=== PATIENT | male | born 1955 | race Caucasian/White ===

== ENCOUNTER 2016-11-02 21:47 | Emergency (ER) | payer OTHER ==
--- NOTE | 2016-11-02 22:39 | ED ORDER SUMMARY ---
..... Patient: RAFIA BRUSH OrderSheet [facility] VisitID: [id number] [address] [place] [address] 61y, M Registration Date/Time: 11/02/2016 ORDER SHEET Weight: 83.9 kg Allergies: No Known Drug Allergy GENERAL ORDERS: Toe Left Urgent (22:06 11/02/2016 HBivens A.R.N.P.) (Ack 22:09 Robb) (22:24 Demetrice) Bernardo Tape Toes (22:38 11/02/2016 HBivens A.R.N.P.) (22:39 Patricia) MEDICATION ORDERS: IV FLUIDS: ORDER SHEET NOTES: [Electronically signed by Lulú Rockwell (22:54 11/02/2016)] [Electronically signed by Alondra Durand.R.N.PJazmin (23:02 11/02/2016)] [Electronically locked/signed by Lulú Rockwell (22:54 11/02/2016)]
--- NOTE | 2016-11-02 22:39 | ED ORDER SUMMARY ---
..... Patient: RAFIA BRUSH OrderSheet [facility] VisitID: [id number] [address] [place] [address] 61y, M Registration Date/Time: 11/02/2016 ORDER SHEET Weight: 83.9 kg Allergies: No Known Drug Allergy GENERAL ORDERS: Toe Left Urgent (22:06 11/02/2016 HBivens A.R.N.P.) (Ack 22:09 Robb) (22:24 Demetrice) Bernardo Tape Toes (22:38 11/02/2016 HBivens A.R.N.P.) (22:39 Patricia) MEDICATION ORDERS: IV FLUIDS: ORDER SHEET NOTES: [Electronically signed by Lulú Rockwell (22:54 11/02/2016)] [Electronically signed by Alondra Durand.R.N.PJazmin (23:02 11/02/2016)] [Electronically locked/signed by Lulú Rockwell (22:54 11/02/2016)]
--- NOTE | 2016-11-02 22:39 | ED CLINICAL REPORT ---
Clinical Report - Physicians/Mid Levels [facility] [address] [place] [address] 11/02/2016 21:56 Patient: RAFIA BRUSH Time Seen: 21:59; upon arrival, initial patient contact, initial documentation, patient care assumed. Arrived- By private vehicle. Historian- patient. HISTORY OF PRESENT ILLNESS Chief Complaint: Injury to the left 5th (small) toe. The injury happened today. The patient sustained a moderate crush injury (chair ran over toe). Occurred at work. Patient denies injury to the head or neck. No other injury. REVIEW OF SYSTEMS The patient complains of pain on weight bearing. He has had swelling. No tingling, weakness, numbness or skin laceration. All systems otherwise negative, except as recorded above. PAST HISTORY See nurses notes. PROBLEMS: Hypercholesterolemia. Hypertension. Diabetes Mellitus. --22:09 Lluú Rockwell. SOCIAL HISTORY Never smoker. Occasional alcohol use. No drug use. No recent travel. Is a local resident. FAMILY HISTORY No significant family medical history. ADDITIONAL NOTES The nursing notes have been reviewed with agreement regarding the chief complaint, HPI, ROS, PMH and patient medications and allergies. PHYSICAL EXAM Vital Signs: 11/02/2016 22:05 BP: 149/67. HR: 94. RR: 18. O2 saturation: 99%. Temp: 97.5 F. Have been reviewed as normal and appear to be correct. Appearance: Alert. Oriented X3. No acute distress. Head: Head atraumatic. Eyes: Pupils equal, round and reactive to light. Eyes normal inspection. Respiratory: No respiratory distress. Skin: Skin intact. Skin warm and dry. Extremities: Foot injury present. Left fifth toe: mild tenderness and swelling and large ecchymosis. Neurovascular intact distally. No erythema, laceration, abrasion, puncture wound or foreign body. No deformity. No limitation in movement. No localization, subungual hematoma or amputation present. No ankle injury. Foot and ankle exam otherwise negative. Extremities otherwise negative. Neuro, Vascular and Tendons: Vascular status intact. Sensation intact. Motor intact. Tendon function intact. Gait: Abnormal gait. Limping gait. (walking on heal, but also had toe wrapped with zora wrap with ice pack under it). Neuro: Oriented X 3. No motor deficit. No sensory deficit. Note: isolated injury to toe. LABS, X-RAYS, AND EKG X-Rays: Left toe(s). Lt Toes X-ray: Left toe(s) fracture. Fracture involving the distal phalanx of the fifth toe. No open, angulated or displaced fracture of the fifth toe. (IMPRESSION: 1. Nondisplaced fracture of the tuft of the distal phalanx, left fifth toe. 2. Arterial vascular calcifications. Consider diabetes. Electronically Final signed by:Jalen Harris MD 11/02/2016 10:51:05 PM). The X-rays were interpreted by the radiologist and contemporaneously by me. Interpretation time: 22:38. PROGRESS AND PROCEDURES Course of Care: 22:39 11/02/16. L&I paperwork completed. Patient counseled in person regarding the patient's stable condition, test results and diagnosis. 22:38. Differential Diagnosis: Other possible considerations: toe fx vs contusion. Above considerations are based on history, physical exam, reassessment and X-Ray data. Differential diagnosis was discussed with patient. Disposition: Discharged home in good and improved condition (22:38). Condition: good and stable. CLINICAL IMPRESSION Closed nondisplaced distal phalanx fracture of the left 5th toe. No angulated fracture of the phalanx. INSTRUCTIONS Apply ice for 20 minutes four times a day for two days until better. Don't apply ice directly to skin. Bernardo tape toes until released. Elevate affected areas above chest level for two days until better. Warnings: GENERAL WARNINGS: Return or contact your physician immediately if your condition worsens or changes unexpectedly, if not improving as expected, or if other problems arise. Specifically return if problem worsens. Prescription Medications: [place] 5 mg / 325 mg tablets: take 1 to 2 orally every 6 hours as needed for pain. Dispense fifteen (15). No refills. Substitution is permissible. Motrin 800 mg tablets: take 1 tablet orally every 8 hours as needed for pain. Dispense thirty (30). No refills. Substitution is permissible. Understanding of the discharge instructions verbalized by patient. Follow-up with: Everardo Turner DPMercedes, Podiatry, , [address] [facility], [place], [address]; Malcolm Donnelly DPM, Podiatry, , [facility], [address] [place] [address], [address], [place] [address] Follow up in about one week even if well. Call for an appointment. Summary of care provided to patient. (Electronically signed by Alondra Durand A.R.N.P. 11/02/2016 23:02)
--- NOTE | 2016-11-02 22:39 | ED NURSING NOTES ---
Clinical Report - Nurses [facility] [address] [place] [address] 11/02/2016 21:56 Patient: RAIFA BRUSH TRIAGE Triage time 2200. Acuity: LEVEL 4. Chief Complaint: INJURY TO THE LEFT FIFTH TOE (bruising swelling). Alert. No acute distress. --22:10 Lulú Rockwell 22:05 11/02/16. BP: 149/67. HR: 94. RR: 18. O2 saturation: 99%. Temp: 97.5 F. Pain level now 0/10. --22:10 Lulú Rockwell. Weight: 83.9 kg. Height/Length: 69 inches. BMI: 27.3. --22:05 Lulú Rockwell. Medications Flomax Oral. --22:07 Lulú Rockwell Gabapentin Oral. --22:07 Lulú Rockwell Simvastatin Oral. --22:07 Lulú Rockwell Naproxen Oral. --22:07 Lulú Rockwell Metoprolol Tartrate Oral. --22:07 Lulú Rockwell MetFORMIN HCl Oral. --22:08 Lulú Rockwell Hydrochlorothiazide Oral. --22:08 Lulú Rockwell. Medication/allergy information source: the patient. --22:10 Lulú Rockwell. Allergies No Known Drug Allergy. --22:08 Lulú Rockwell. History Arrived by private vehicle. Historian: patient. Accompanied by family. Mechanism of injury: he sustained a crush injury. He has had numbness and trouble walking. 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 SOCIAL HX: Never smoker. Occasional alcohol use. FALL RISK ASSESSMENT: Fall risk assessment completed. No fall risk identified. NUTRITIONAL RISK ASSESSMENT: The nutritional risk assessment revealed no deficiencies. FUNCTIONAL ASSESSMENT: Functional assessment: no impairments noted. LEARNING NEEDS ASSESSMENT: The learning needs assessment revealed no barriers. SKIN INTEGRITY ASSESSMENT: Skin integrity risk assessment completed. No skin integrity risk identified. --22:10 Lulú Rockwell. PROBLEMS: Hypercholesterolemia. Hypertension. Diabetes Mellitus. --22:09 Lulú Rockwell. Interventions ID band on patient. To treatment room. --22:10 Lulú Rockwell. PHYSICAL ASSESSMENT Ambulatory to room. GENERAL / NEURO / PSYCH: Oriented X 4. Alert. Appears in no acute distress. He has had numbness. EXTREMITIES: Capillary refill is less than 2 seconds in the extremities. Extremity pulses are within normal limits. Normal gait. Left fifth toe: tenderness, swelling and ecchymosis. Limited movement secondary to pain. SKIN: Skin intact. Skin is warm and dry. --22:11 Lulú Rockwell. NURSING PROGRESS NOTES The plan of care for this patient has been created. Cold pack applied. Reassurance given. Bed placed in lowest position. Brakes of bed on. Patient ready for evaluation- chart flagged. --22:11 Lulú Rockwell Left fourth and fifth toes flaca-taped. --22:53 Lulú Rockwell. DISPOSITION / DISCHARGE Departure time: 2250. Condition at departure: unchanged and stable. No learning barriers present. Discharge instructions provided and reviewed with the patient. Reviewed medication(s). Treatments reviewed. Patient verbalized understanding. Written instructions provided in [place]. The patient was discharged by the nurse practitioner. He was discharged home and accompanied by family. He left the Emergency Department ambulatory and via private vehicle. Family member driving. --22:54 Lulú Rockwell. Locked/Released at 11/02/2016 22:54 by Lulú Rockwell,
--- NOTE | 2016-11-02 22:39 | ED NURSING NOTES ---
Clinical Report - Nurses [facility] [address] [place] [address] 11/02/2016 21:56 Patient: RAFIA BRUSH TRIAGE Triage time 2200. Acuity: LEVEL 4. Chief Complaint: INJURY TO THE LEFT FIFTH TOE (bruising swelling). Alert. No acute distress. --22:10 Lulú Rockwell 22:05 11/02/16. BP: 149/67. HR: 94. RR: 18. O2 saturation: 99%. Temp: 97.5 F. Pain level now 0/10. --22:10 Lulú Rockwell. Weight: 83.9 kg. Height/Length: 69 inches. BMI: 27.3. --22:05 Lulú Rockwell. Medications Flomax Oral. --22:07 Lulú Rockwell Gabapentin Oral. --22:07 Lulú Rockwell Simvastatin Oral. --22:07 Lulú Rockwell Naproxen Oral. --22:07 Lulú Rockwell Metoprolol Tartrate Oral. --22:07 Lulú Rockwell MetFORMIN HCl Oral. --22:08 Lulú Rockwell Hydrochlorothiazide Oral. --22:08 Lulú Rockwell. Medication/allergy information source: the patient. --22:10 Lluú Rockwell. Allergies No Known Drug Allergy. --22:08 Lulú Rockwell. History Arrived by private vehicle. Historian: patient. Accompanied by family. Mechanism of injury: he sustained a crush injury. He has had numbness and trouble walking. 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 SOCIAL HX: Never smoker. Occasional alcohol use. FALL RISK ASSESSMENT: Fall risk assessment completed. No fall risk identified. NUTRITIONAL RISK ASSESSMENT: The nutritional risk assessment revealed no deficiencies. FUNCTIONAL ASSESSMENT: Functional assessment: no impairments noted. LEARNING NEEDS ASSESSMENT: The learning needs assessment revealed no barriers. SKIN INTEGRITY ASSESSMENT: Skin integrity risk assessment completed. No skin integrity risk identified. --22:10 Lulú Rockwell. PROBLEMS: Hypercholesterolemia. Hypertension. Diabetes Mellitus. --22:09 Lulú Rockwell. Interventions ID band on patient. To treatment room. --22:10 Lulú Rockwell. PHYSICAL ASSESSMENT Ambulatory to room. GENERAL / NEURO / PSYCH: Oriented X 4. Alert. Appears in no acute distress. He has had numbness. EXTREMITIES: Capillary refill is less than 2 seconds in the extremities. Extremity pulses are within normal limits. Normal gait. Left fifth toe: tenderness, swelling and ecchymosis. Limited movement secondary to pain. SKIN: Skin intact. Skin is warm and dry. --22:11 Lulú Rockwell. NURSING PROGRESS NOTES The plan of care for this patient has been created. Cold pack applied. Reassurance given. Bed placed in lowest position. Brakes of bed on. Patient ready for evaluation- chart flagged. --22:11 Lulú Rockwell Left fourth and fifth toes flaca-taped. --22:53 Lulú Rockwell. DISPOSITION / DISCHARGE Departure time: 2250. Condition at departure: unchanged and stable. No learning barriers present. Discharge instructions provided and reviewed with the patient. Reviewed medication(s). Treatments reviewed. Patient verbalized understanding. Written instructions provided in [place]. The patient was discharged by the nurse practitioner. He was discharged home and accompanied by family. He left the Emergency Department ambulatory and via private vehicle. Family member driving. --22:54 Lulú Rockwell. Locked/Released at 11/02/2016 22:54 by Lulú Rockwell,
--- NOTE | 2016-11-02 22:39 | ED CLINICAL REPORT ---
Clinical Report - Physicians/Mid Levels [facility] [address] [place] [address] 11/02/2016 21:56 Patient: RAFIA BRUSH Time Seen: 21:59; upon arrival, initial patient contact, initial documentation, patient care assumed. Arrived- By private vehicle. Historian- patient. HISTORY OF PRESENT ILLNESS Chief Complaint: Injury to the left 5th (small) toe. The injury happened today. The patient sustained a moderate crush injury (chair ran over toe). Occurred at work. Patient denies injury to the head or neck. No other injury. REVIEW OF SYSTEMS The patient complains of pain on weight bearing. He has had swelling. No tingling, weakness, numbness or skin laceration. All systems otherwise negative, except as recorded above. PAST HISTORY See nurses notes. PROBLEMS: Hypercholesterolemia. Hypertension. Diabetes Mellitus. --22:09 Lulú Rockwell. SOCIAL HISTORY Never smoker. Occasional alcohol use. No drug use. No recent travel. Is a local resident. FAMILY HISTORY No significant family medical history. ADDITIONAL NOTES The nursing notes have been reviewed with agreement regarding the chief complaint, HPI, ROS, PMH and patient medications and allergies. PHYSICAL EXAM Vital Signs: 11/02/2016 22:05 BP: 149/67. HR: 94. RR: 18. O2 saturation: 99%. Temp: 97.5 F. Have been reviewed as normal and appear to be correct. Appearance: Alert. Oriented X3. No acute distress. Head: Head atraumatic. Eyes: Pupils equal, round and reactive to light. Eyes normal inspection. Respiratory: No respiratory distress. Skin: Skin intact. Skin warm and dry. Extremities: Foot injury present. Left fifth toe: mild tenderness and swelling and large ecchymosis. Neurovascular intact distally. No erythema, laceration, abrasion, puncture wound or foreign body. No deformity. No limitation in movement. No localization, subungual hematoma or amputation present. No ankle injury. Foot and ankle exam otherwise negative. Extremities otherwise negative. Neuro, Vascular and Tendons: Vascular status intact. Sensation intact. Motor intact. Tendon function intact. Gait: Abnormal gait. Limping gait. (walking on heal, but also had toe wrapped with zora wrap with ice pack under it). Neuro: Oriented X 3. No motor deficit. No sensory deficit. Note: isolated injury to toe. LABS, X-RAYS, AND EKG X-Rays: Left toe(s). Lt Toes X-ray: Left toe(s) fracture. Fracture involving the distal phalanx of the fifth toe. No open, angulated or displaced fracture of the fifth toe. (IMPRESSION: 1. Nondisplaced fracture of the tuft of the distal phalanx, left fifth toe. 2. Arterial vascular calcifications. Consider diabetes. Electronically Final signed by:Jalen Harris MD 11/02/2016 10:51:05 PM). The X-rays were interpreted by the radiologist and contemporaneously by me. Interpretation time: 22:38. PROGRESS AND PROCEDURES Course of Care: 22:39 11/02/16. L&I paperwork completed. Patient counseled in person regarding the patient's stable condition, test results and diagnosis. 22:38. Differential Diagnosis: Other possible considerations: toe fx vs contusion. Above considerations are based on history, physical exam, reassessment and X-Ray data. Differential diagnosis was discussed with patient. Disposition: Discharged home in good and improved condition (22:38). Condition: good and stable. CLINICAL IMPRESSION Closed nondisplaced distal phalanx fracture of the left 5th toe. No angulated fracture of the phalanx. INSTRUCTIONS Apply ice for 20 minutes four times a day for two days until better. Don't apply ice directly to skin. Bernardo tape toes until released. Elevate affected areas above chest level for two days until better. Warnings: GENERAL WARNINGS: Return or contact your physician immediately if your condition worsens or changes unexpectedly, if not improving as expected, or if other problems arise. Specifically return if problem worsens. Prescription Medications: [place] 5 mg / 325 mg tablets: take 1 to 2 orally every 6 hours as needed for pain. Dispense fifteen (15). No refills. Substitution is permissible. Motrin 800 mg tablets: take 1 tablet orally every 8 hours as needed for pain. Dispense thirty (30). No refills. Substitution is permissible. Understanding of the discharge instructions verbalized by patient. Follow-up with: Everardo Turner DPMercedes, Podiatry, , [address] [facility], [place], [address]; Malcolm Donnelly DPM, Podiatry, , [facility], [address] [place] [address], [address], [place] [address] Follow up in about one week even if well. Call for an appointment. Summary of care provided to patient. (Electronically signed by Alondra Durand A.R.N.P. 11/02/2016 23:02)
--- NOTE | 2016-11-02 22:55 | DIAGNOSTIC IMAGING REPORT ---
PROCEDURE: XR TOE - LEFT (fifth toe). INDICATION: TRAUMA/INJURY TECHNIQUE: Three views. COMPARISON: None. FINDINGS: There is a nondisplaced transverse fracture of the tuft of the distal phalanx, left fifth toe. The rest the osseous structures and joint spaces are normal. Arterial vascular calcifications. IMPRESSION: 1. Nondisplaced fracture of the tuft of the distal phalanx, left fifth toe. 2. Arterial vascular calcifications. Consider diabetes.
--- NOTE | 2016-11-02 23:02 | ED MED RECONCILIATION SUMMARY ---
Patient: RAFIA BRUSH Medication Reconciliation Report [facility] VisitID: [id number] [address] [place] [address] 61y, M Registration Date/Time: 11/02/2016 Weight: 83.9 kg Height/Length: 69 in. BMI: 27.3 ALLERGIES: No Known Drug Allergy The patient's Home Medications are listed below: THE FOLLOWING MEDICATIONS NEED TO BE RECONCILED: Flomax Oral Gabapentin Oral Hydrochlorothiazide Oral MetFORMIN HCl Oral Metoprolol Tartrate Oral Naproxen Oral Simvastatin Oral The source(s) of the original Home Medication information: patient The following Medications were given to the patient in the Emergency Department: None. The following Medications were prescribed to the patient: [place] 5 mg / 325 mg tablets: take 1 to 2 orally every 6 hours as needed for pain. Dispense fifteen (15). No refills. Substitution is permissible. -- Alondra Durand, Jose A.R.N.P. Motrin 800 mg tablets: take 1 tablet orally every 8 hours as needed for pain. Dispense thirty (30). No refills. Substitution is permissible. -- Alondra Durand A.R.N.P.
--- NOTE | 2016-11-02 23:02 | ED DISCHARGE INSTRUCTIONS ---
Patient: RAFIA BRUSH General Instructions [facility] VisitID: [id number] [place] [address] 61y, M Registration Date/Time: 11/02/2016 Closed nondisplaced distal phalanx fracture of the left 5th toe. No angulated fracture of the phalanx. INSTRUCTIONS Apply ice for 20 minutes four times a day for two days until better. Don't apply ice directly to skin. Flaca tape toes until released. Elevate affected areas above chest level for two days until better. Warnings: GENERAL WARNINGS: Return or contact your physician immediately if your condition worsens or changes unexpectedly, if not improving as expected, or if other problems arise. Specifically return if problem worsens. Prescription Medications: Plato 5 mg / 325 mg tablets: take 1 to 2 orally every 6 hours as needed for pain. Dispense fifteen (15). No refills. Substitution is permissible. Motrin 800 mg tablets: take 1 tablet orally every 8 hours as needed for pain. Dispense thirty (30). No refills. Substitution is permissible. Understanding of the discharge instructions verbalized by patient. Follow-up with: Everardo Turner DPM, Podiatry, , [address] [place] [address]. [address], [place] [address]; Malcolm Donnelly DPM, Podiatry, , [facility], [address] [place] [address], [address], [place] [address] Follow up in about one week even if well. Call for an appointment. Summary of care provided to patient. ADDITIONAL INFORMATION Fracture:Toe [Closed] You have a fracture of your toe (broken toe). This causes local pain, swelling and bruising. This injury takes about four weeks to heal. Toe injuries are often treated by taping the injured toe to the next one ("flaca taping"). This protects the injured toe and holds it in position. If the TOENAIL has been severely injured, it may fall off in 1-2 weeks. It takes up to 12 months for a new toenail to grow back. Home Care: 1) You may be given a cast shoe to wear to prevent movement in your toe. If not, you can use a sandal or any shoe that does not put pressure on the injured toe until the swelling and pain go away. If using a sandal, be careful not to strike your foot against anything, since another injury could make the fracture worse. If you were given crutches, do not put full weight on the injured foot until you can do so without pain. 2) Keep your foot elevated to reduce pain and swelling. When sleeping, place a pillow under the injured leg. When sitting, support the injured leg so it is level with your waist. This is very important during the first 48 hours. 3) Apply an ice pack (ice cubes in a plastic bag, wrapped in a towel) over the injured area for 20 minutes every 1-2 hours the first day. Continue with ice packs 3-4 times a day for the next two days, then as needed for the relief of pain and swelling. 4) If flaca tape was applied and it becomes wet or dirty, change it. You may replace it with paper, plastic or cloth tape. Cloth tape and paper tapes must be kept dry. 5) You may use acetaminophen (Tylenol) or ibuprofen (Motrin, Advil) to control pain, unless another pain medicine was prescribed. [ NOTE : If you have chronic liver or kidney disease or ever had a stomach ulcer or GI bleeding, talk with your doctor before using these medicines.] 6) You may return to sports or physical education activities after 4 weeks or when you can run without pain. Follow Up With Your Doctor In One Week, Or As Advised By Our Staff, To Be Sure The Bone Is Healing Properly. [NOTE: Any X-rays taken will be reviewed by a radiologist. You will be notified of any new findings that may affect your care.] Get Prompt Medical Attention If Any Of The Following Occur: Increasing pain or swelling Toe becomes cold, blue, numb or tingly Signs of infection: fever, redness, warmth, swelling or drainage from the wound Fever of 100.4F (38C) or higher, or as directed by your healthcare provider Hydrocodone Bitartrate, Acetaminophen Oral tablet What is this medicine? ACETAMINOPHEN; HYDROCODONE (a set a CLARK sofia fen; mejia droe KOE done) is a pain reliever. It is used to treat mild to moderate pain. How should I use this medicine? Take this medicine by mouth. Swallow it with a full glass of water. Follow the directions on the prescription label. If the medicine upsets your stomach, take the medicine with food or milk. Do not take more than you are told to take. Talk to your auto polisher regarding the use of this medicine in children. This medicine is not approved for use in children. What side effects may I notice from receiving this medicine? Side effects that you should report to your doctor or health career coordinator as soon as possible: allergic reactions like skin rash, itching or hives, swelling of the face, lips, or tongue breathing problems confusion feeling faint or lightheaded, falls stomach pain yellowing of the eyes or skin Side effects that usually do not require medical attention (report to your doctor or health career coordinator if they continue or are bothersome): nausea, vomiting stomach upset What may interact with this medicine? alcohol antihistamines isoniazid medicines for depression, anxiety, or psychotic disturbances medicines for sleep muscle relaxants naltrexone narcotic medicines (opiates) for pain phenobarbital ritonavir tramadol What if I miss a dose? If you miss a dose, take it as soon as you can. If it is almost time for your next dose, take only that dose. Do not take double or extra doses. Where should I keep my medicine? Keep out of the reach of children. This medicine can be abused. Keep your medicine in a safe place to protect it from theft. Do not share this medicine with anyone. Selling or giving away this medicine is dangerous and against the law. Store at room temperature between 15 and 30 degrees C (59 and 86 degrees F). Protect from light. Keep container tightly closed. Throw away any unused medicine after the expiration date. Discard unused medicine and used packaging carefully. Pets and children can be harmed if they find used or lost packages. What should I tell my health care provider before I take this medicine? They need to know if you have any of these conditions: brain tumor Crohn's disease, inflammatory bowel disease, or ulcerative colitis drink more than 3 alcohol-containing drinks per day drug abuse or addiction head injury heart or circulation problems kidney disease or problems going to the bathroom liver disease lung disease, asthma, or breathing problems an unusual or allergic reaction to acetaminophen, hydrocodone, other opioid analgesics, other medicines, foods, dyes, or preservatives or trying to get breast-feeding What should I watch for while using this medicine? Tell your doctor or health career coordinator if your pain does not go away, if it gets worse, or if you have new or a different type of pain. You may develop tolerance to the medicine. Tolerance means that you will need a higher dose of the medicine for pain relief. Tolerance is normal and is expected if you take the medicine for a long time. Do not suddenly stop taking your medicine because you may develop a severe reaction. Your body becomes used to the medicine. This does NOT mean you are addicted. Addiction is a behavior related to getting and using a drug for a non-medical reason. If you have pain, you have a medical reason to take pain medicine. Your doctor will tell you how much medicine to take. If your doctor wants you to stop the medicine, the dose will be slowly lowered over time to avoid any side effects. You may get drowsy or dizzy when you first start taking the medicine or change doses. Do not drive, use machinery, or do anything that may be dangerous until you know how the medicine affects you. Stand or sit up slowly. There are different types of narcotic medicines (opiates) for pain. If you take more than one type at the same time, you may have more side effects. Give your health care provider a list of all medicines you use. Your doctor will tell you how much medicine to take. Do not take more medicine than directed. Call emergency for help if you have problems breathing. The medicine will cause constipation. Try to have a bowel movement at least every 2 to 3 days. If you do not have a bowel movement for 3 days, call your doctor or health career coordinator. Too much acetaminophen can be very dangerous. Do not take Tylenol (acetaminophen) or medicines that contain acetaminophen with this medicine. Many non-prescription medicines contain acetaminophen. Always read the labels carefully. Ibuprofen Oral tablet What is this medicine? IBUPROFEN (eye BYOO proe fen) is a non-steroidal anti-inflammatory drug (NSAID). It is used for dental pain, fever, headaches or migraines, osteoarthritis, rheumatoid arthritis, or painful monthly periods. It can also relieve minor aches and pains caused by a cold, flu, or sore throat. How should I use this medicine? Take this medicine by mouth with a glass of water. Follow the directions on the prescription label. Take this medicine with food if your stomach gets upset. Try to not lie down for at least 10 minutes after you take the medicine. Take your medicine at regular intervals. Do not take your medicine more often than directed. A special MedGuide will be given to you by the pharmacist with each prescription and refill. Be sure to read this information carefully each time. Talk to your auto polisher regarding the use of this medicine in children. Special care may be needed. What side effects may I notice from receiving this medicine? Side effects that you should report to your doctor or health career coordinator as soon as possible: allergic reactions like skin rash, itching or hives, swelling of the face, lips, or tongue black or bloody stools, blood in the urine or in vomit breathing problems changes in vision chest pain general ill feeling or flu-like symptoms nausea or vomiting redness, blistering, peeling or loosening of the skin, including inside the mouth slurred speech or weakness on one side of the body stomach pain unexplained weight gain or swelling unusually weak or tired yellowing of eyes or skin Side effects that usually do not require medical attention (report to your doctor or health career coordinator if they continue or are bothersome): constipation or diarrhea dizziness gas or heartburn stomach upset What may interact with this medicine? Do not take this medicine with any of the following medications: cidofovir ketorolac methotrexate pemetrexed This medicine may also interact with the following medications: alcohol aspirin diuretics lithium other drugs for inflammation like prednisone warfarin What if I miss a dose? If you miss a dose, take it as soon as you can. If it is almost time for your next dose, take only that dose. Do not take double or extra doses. Where should I keep my medicine? Keep out of the reach of children. Store at room temperature between 15 and 30 degrees C (59 and 86 degrees F). Keep container tightly closed. Throw away any unused medicine after the expiration date. What should I tell my health care provider before I take this medicine? They need to know if you have any of these conditions: asthma cigarette smoker drink more than 3 alcohol containing drinks a day heart disease or circulation problems such as heart failure or leg edema (fluid retention) high blood pressure kidney disease liver disease stomach bleeding or ulcers an unusual or allergic reaction to ibuprofen, aspirin, other NSAIDS, other medicines, foods, dyes, or preservatives or trying to get breast-feeding What should I watch for while using this medicine? Tell your doctor or healthcare professional if your symptoms do not start to get better or if they get worse. This medicine does not prevent heart attack or stroke. In fact, this medicine may increase the chance of a heart attack or stroke. The chance may increase with longer use of this medicine and in people who have heart disease. If you take aspirin to prevent heart attack or stroke, talk with your doctor or health career coordinator. Do not take other medicines that contain aspirin, ibuprofen, or naproxen with this medicine. Side effects such as stomach upset, nausea, or ulcers may be more likely to occur. Many medicines available without a prescription should not be taken with this medicine. This medicine can cause ulcers and bleeding in the stomach and intestines at any time during treatment. Ulcers and bleeding can happen without warning symptoms and can cause . To reduce your risk, do not smoke cigarettes or drink alcohol while you are taking this medicine. You may get drowsy or dizzy. Do not drive, use machinery, or do anything that needs mental alertness until you know how this medicine affects you. Do not stand or sit up quickly, especially if you are an older patient. This reduces the risk of dizzy or fainting spells. This medicine can cause you to bleed more easily. Try to avoid damage to your teeth and gums when you brush or floss your teeth. You have been given the following additional information: Fracture, Toe [Closed] Hydrocodone Bitartrate, Acetaminophen Oral tablet Ibuprofen Oral tablet (Electronically signed by Alondra Durand A.R.N.P. 11/02/2016 23:02)
--- NOTE | 2016-11-02 23:02 | ED MAR SUMMARY ---
..... Medication Administration Record [facility] [address] [place] [place], [place] [id number] Patient: RAFIA BRUSH Visit ID: [id number] 61y, M Weight: 83.9 kg Height/Length: 69 in BMI: 27.3 ALLERGIES: No Known Drug Allergy
--- NOTE | 2016-11-02 23:02 | ED DISCHARGE INSTRUCTIONS ---
Patient: RAFIA BRUSH General Instructions Formerly [facility] VisitID: [id number] [place] [address] 61y, M Registration Date/Time: 11/02/2016 Closed nondisplaced distal phalanx fracture of the left 5th toe. No angulated fracture of the phalanx. INSTRUCTIONS Apply ice for 20 minutes four times a day for two days until better. Don't apply ice directly to skin. Flaca tape toes until released. Elevate affected areas above chest level for two days until better. Warnings: GENERAL WARNINGS: Return or contact your physician immediately if your condition worsens or changes unexpectedly, if not improving as expected, or if other problems arise. Specifically return if problem worsens. Prescription Medications: [place] 5 mg / 325 mg tablets: take 1 to 2 orally every 6 hours as needed for pain. Dispense fifteen (15). No refills. Substitution is permissible. Motrin 800 mg tablets: take 1 tablet orally every 8 hours as needed for pain. Dispense thirty (30). No refills. Substitution is permissible. Understanding of the discharge instructions verbalized by patient. Follow-up with: Everardo Turner DPM, Podiatry, , [address] [place] [address]. [address], [place] [address]; Malcolm Donnelly DPM, Podiatry, , [facility], [address] [place] [address], [address], [place] [address] Follow up in about one week even if well. Call for an appointment. Summary of care provided to patient. ADDITIONAL INFORMATION Fracture:Toe [Closed] You have a fracture of your toe (broken toe). This causes local pain, swelling and bruising. This injury takes about four weeks to heal. Toe injuries are often treated by taping the injured toe to the next one ("flaca taping"). This protects the injured toe and holds it in position. If the TOENAIL has been severely injured, it may fall off in 1-2 weeks. It takes up to 12 months for a new toenail to grow back. Home Care: 1) You may be given a cast shoe to wear to prevent movement in your toe. If not, you can use a sandal or any shoe that does not put pressure on the injured toe until the swelling and pain go away. If using a sandal, be careful not to strike your foot against anything, since another injury could make the fracture worse. If you were given crutches, do not put full weight on the injured foot until you can do so without pain. 2) Keep your foot elevated to reduce pain and swelling. When sleeping, place a pillow under the injured leg. When sitting, support the injured leg so it is level with your waist. This is very important during the first 48 hours. 3) Apply an ice pack (ice cubes in a plastic bag, wrapped in a towel) over the injured area for 20 minutes every 1-2 hours the first day. Continue with ice packs 3-4 times a day for the next two days, then as needed for the relief of pain and swelling. 4) If flaca tape was applied and it becomes wet or dirty, change it. You may replace it with paper, plastic or cloth tape. Cloth tape and paper tapes must be kept dry. 5) You may use acetaminophen (Tylenol) or ibuprofen (Motrin, Advil) to control pain, unless another pain medicine was prescribed. [ NOTE : If you have chronic liver or kidney disease or ever had a stomach ulcer or GI bleeding, talk with your doctor before using these medicines.] 6) You may return to sports or physical education activities after 4 weeks or when you can run without pain. Follow Up With Your Doctor In One Week, Or As Advised By Our Staff, To Be Sure The Bone Is Healing Properly. [NOTE: Any X-rays taken will be reviewed by a radiologist. You will be notified of any new findings that may affect your care.] Get Prompt Medical Attention If Any Of The Following Occur: Increasing pain or swelling Toe becomes cold, blue, numb or tingly Signs of infection: fever, redness, warmth, swelling or drainage from the wound Fever of 100.4F (38C) or higher, or as directed by your healthcare provider Hydrocodone Bitartrate, Acetaminophen Oral tablet What is this medicine? ACETAMINOPHEN; HYDROCODONE (a set a CLARK sofia fen; mejia droe KOE done) is a pain reliever. It is used to treat mild to moderate pain. How should I use this medicine? Take this medicine by mouth. Swallow it with a full glass of water. Follow the directions on the prescription label. If the medicine upsets your stomach, take the medicine with food or milk. Do not take more than you are told to take. Talk to your plate keeper regarding the use of this medicine in children. This medicine is not approved for use in children. What side effects may I notice from receiving this medicine? Side effects that you should report to your doctor or health director of health care marketing as soon as possible: allergic reactions like skin rash, itching or hives, swelling of the face, lips, or tongue breathing problems confusion feeling faint or lightheaded, falls stomach pain yellowing of the eyes or skin Side effects that usually do not require medical attention (report to your doctor or health director of health care marketing if they continue or are bothersome): nausea, vomiting stomach upset What may interact with this medicine? alcohol antihistamines isoniazid medicines for depression, anxiety, or psychotic disturbances medicines for sleep muscle relaxants naltrexone narcotic medicines (opiates) for pain phenobarbital ritonavir tramadol What if I miss a dose? If you miss a dose, take it as soon as you can. If it is almost time for your next dose, take only that dose. Do not take double or extra doses. Where should I keep my medicine? Keep out of the reach of children. This medicine can be abused. Keep your medicine in a safe place to protect it from theft. Do not share this medicine with anyone. Selling or giving away this medicine is dangerous and against the law. Store at room temperature between 15 and 30 degrees C (59 and 86 degrees F). Protect from light. Keep container tightly closed. Throw away any unused medicine after the expiration date. Discard unused medicine and used packaging carefully. Pets and children can be harmed if they find used or lost packages. What should I tell my health care provider before I take this medicine? They need to know if you have any of these conditions: brain tumor Crohn's disease, inflammatory bowel disease, or ulcerative colitis drink more than 3 alcohol-containing drinks per day drug abuse or addiction head injury heart or circulation problems kidney disease or problems going to the bathroom liver disease lung disease, asthma, or breathing problems an unusual or allergic reaction to acetaminophen, hydrocodone, other opioid analgesics, other medicines, foods, dyes, or preservatives or trying to get breast-feeding What should I watch for while using this medicine? Tell your doctor or health director of health care marketing if your pain does not go away, if it gets worse, or if you have new or a different type of pain. You may develop tolerance to the medicine. Tolerance means that you will need a higher dose of the medicine for pain relief. Tolerance is normal and is expected if you take the medicine for a long time. Do not suddenly stop taking your medicine because you may develop a severe reaction. Your body becomes used to the medicine. This does NOT mean you are addicted. Addiction is a behavior related to getting and using a drug for a non-medical reason. If you have pain, you have a medical reason to take pain medicine. Your doctor will tell you how much medicine to take. If your doctor wants you to stop the medicine, the dose will be slowly lowered over time to avoid any side effects. You may get drowsy or dizzy when you first start taking the medicine or change doses. Do not drive, use machinery, or do anything that may be dangerous until you know how the medicine affects you. Stand or sit up slowly. There are different types of narcotic medicines (opiates) for pain. If you take more than one type at the same time, you may have more side effects. Give your health care provider a list of all medicines you use. Your doctor will tell you how much medicine to take. Do not take more medicine than directed. Call emergency for help if you have problems breathing. The medicine will cause constipation. Try to have a bowel movement at least every 2 to 3 days. If you do not have a bowel movement for 3 days, call your doctor or health director of health care marketing. Too much acetaminophen can be very dangerous. Do not take Tylenol (acetaminophen) or medicines that contain acetaminophen with this medicine. Many non-prescription medicines contain acetaminophen. Always read the labels carefully. Ibuprofen Oral tablet What is this medicine? IBUPROFEN (eye BYOO proe fen) is a non-steroidal anti-inflammatory drug (NSAID). It is used for dental pain, fever, headaches or migraines, osteoarthritis, rheumatoid arthritis, or painful monthly periods. It can also relieve minor aches and pains caused by a cold, flu, or sore throat. How should I use this medicine? Take this medicine by mouth with a glass of water. Follow the directions on the prescription label. Take this medicine with food if your stomach gets upset. Try to not lie down for at least 10 minutes after you take the medicine. Take your medicine at regular intervals. Do not take your medicine more often than directed. A special MedGuide will be given to you by the pharmacist with each prescription and refill. Be sure to read this information carefully each time. Talk to your plate keeper regarding the use of this medicine in children. Special care may be needed. What side effects may I notice from receiving this medicine? Side effects that you should report to your doctor or health director of health care marketing as soon as possible: allergic reactions like skin rash, itching or hives, swelling of the face, lips, or tongue black or bloody stools, blood in the urine or in vomit breathing problems changes in vision chest pain general ill feeling or flu-like symptoms nausea or vomiting redness, blistering, peeling or loosening of the skin, including inside the mouth slurred speech or weakness on one side of the body stomach pain unexplained weight gain or swelling unusually weak or tired yellowing of eyes or skin Side effects that usually do not require medical attention (report to your doctor or health director of health care marketing if they continue or are bothersome): constipation or diarrhea dizziness gas or heartburn stomach upset What may interact with this medicine? Do not take this medicine with any of the following medications: cidofovir ketorolac methotrexate pemetrexed This medicine may also interact with the following medications: alcohol aspirin diuretics lithium other drugs for inflammation like prednisone warfarin What if I miss a dose? If you miss a dose, take it as soon as you can. If it is almost time for your next dose, take only that dose. Do not take double or extra doses. Where should I keep my medicine? Keep out of the reach of children. Store at room temperature between 15 and 30 degrees C (59 and 86 degrees F). Keep container tightly closed. Throw away any unused medicine after the expiration date. What should I tell my health care provider before I take this medicine? They need to know if you have any of these conditions: asthma cigarette smoker drink more than 3 alcohol containing drinks a day heart disease or circulation problems such as heart failure or leg edema (fluid retention) high blood pressure kidney disease liver disease stomach bleeding or ulcers an unusual or allergic reaction to ibuprofen, aspirin, other NSAIDS, other medicines, foods, dyes, or preservatives or trying to get breast-feeding What should I watch for while using this medicine? Tell your doctor or healthcare professional if your symptoms do not start to get better or if they get worse. This medicine does not prevent heart attack or stroke. In fact, this medicine may increase the chance of a heart attack or stroke. The chance may increase with longer use of this medicine and in people who have heart disease. If you take aspirin to prevent heart attack or stroke, talk with your doctor or health director of health care marketing. Do not take other medicines that contain aspirin, ibuprofen, or naproxen with this medicine. Side effects such as stomach upset, nausea, or ulcers may be more likely to occur. Many medicines available without a prescription should not be taken with this medicine. This medicine can cause ulcers and bleeding in the stomach and intestines at any time during treatment. Ulcers and bleeding can happen without warning symptoms and can cause . To reduce your risk, do not smoke cigarettes or drink alcohol while you are taking this medicine. You may get drowsy or dizzy. Do not drive, use machinery, or do anything that needs mental alertness until you know how this medicine affects you. Do not stand or sit up quickly, especially if you are an older patient. This reduces the risk of dizzy or fainting spells. This medicine can cause you to bleed more easily. Try to avoid damage to your teeth and gums when you brush or floss your teeth. You have been given the following additional information: Fracture, Toe [Closed] Hydrocodone Bitartrate, Acetaminophen Oral tablet Ibuprofen Oral tablet (Electronically signed by Alondra Durand A.R.N.P. 11/02/2016 23:02)
--- NOTE | 2016-11-02 23:02 | ED MED RECONCILIATION SUMMARY ---
Patient: RAFIA BRUSH Medication Reconciliation Report [facility] VisitID: [id number] [address] [place] [address] 61y, M Registration Date/Time: 11/02/2016 Weight: 83.9 kg Height/Length: 69 in. BMI: 27.3 ALLERGIES: No Known Drug Allergy The patient's Home Medications are listed below: THE FOLLOWING MEDICATIONS NEED TO BE RECONCILED: Flomax Oral Gabapentin Oral Hydrochlorothiazide Oral MetFORMIN HCl Oral Metoprolol Tartrate Oral Naproxen Oral Simvastatin Oral The source(s) of the original Home Medication information: patient The following Medications were given to the patient in the Emergency Department: None. The following Medications were prescribed to the patient: [place] 5 mg / 325 mg tablets: take 1 to 2 orally every 6 hours as needed for pain. Dispense fifteen (15). No refills. Substitution is permissible. -- Alondra Durand, Jose A.R.N.P. Motrin 800 mg tablets: take 1 tablet orally every 8 hours as needed for pain. Dispense thirty (30). No refills. Substitution is permissible. -- Alondra Durand A.R.N.P.
--- NOTE | 2016-11-02 23:02 | ED MAR SUMMARY ---
..... Medication Administration Record [facility] [address], [place] [id number] Patient: RAFIA BRUSH Visit ID: [id number] 61y, M Weight: 83.9 kg Height/Length: 69 in BMI: 27.3 ALLERGIES: No Known Drug Allergy
== END 2016-11-02 22:50 | disposition home or self-care (01) ==
LOC: ED SRH 21:47
DX: S92.535A Nondisplaced fracture of distal phalanx of left lesser toe(s), initial encounter for closed fracture (principal); W23.0XXA Caught, crushed, jammed, or pinched between moving objects, initial encounter; Y93.9 Activity, unspecified; Y99.0 Civilian activity done for income or pay; Y92.89 Other specified places as the place of occurrence of the external cause; I10 Essential (primary) hypertension; E11.9 Type 2 diabetes mellitus without complications; E78.00 Pure hypercholesterolemia, unspecified; Z79.84 Long term (current) use of oral hypoglycemic drugs; Z79.899 Other long term (current) drug therapy